=== PATIENT | female | born 1965 | race Caucasian/White ===

== ENCOUNTER 2018-08-20 20:44 | Emergency (ER) | payer OTHER ==
[~2018-08-20] VITALS: Ht 152.4 cm; Wt 81.6 kg
[~2018-08-20 20:44] MED LIST: ASPI81CT PO; FENO134C2 PO; FENO48TA3 PO; GLIP10TE PO; IBUP200C97 PO; METF1000 PO; PIOG15TA2 PO; RANI15SY PO; SIMV5TAB83 PO
[2018-08-20 20:54] VITALS: BP 178/88
--- NOTE | 2018-08-20 20:56 | NUR ---
PT TIRAGED AND SENT TO LOBBY
--- NOTE | 2018-08-20 22:16 | NUR ---
PT AMBULATED TO BED 3
--- NOTE | 2018-08-20 22:25 | NUR ---
PATIENT IS A 53 Y/O FEMALE WHO PRESENTS TO THE ED C/O WRIST PAIN. PT DENIES TRAUMA INJURY. PT REPORTS 8/10 ACHING R WRIST PAIN THAT DOES NOT RADIATE. NOTED MILD SWELLING. CMS INTACT. PT DENIES CP, SOB, N/V/D. PT AWAKE AND ALERT, RR EVEN/UNLABORED. PT REPOSITIONED FOR COMFORT, BED IN LOWEST POSITION. ER MD DR. MENSAH NOTIFIED. WILL CONTINUE TO MONITOR.
[2018-08-20] MEDS ORDERED: HYDROcodone/APAP 10/325 MG 1 TAB TAB PO ONE (23:25)
--- NOTE | 2018-08-21 00:15 | NUR ---
WRIST AND FOREARM SPLINT APPLIED TO PT R WRIST. FITTED TO PT, +CSM
[2018-08-21 00:30] VITALS: BP 150/82
--- NOTE | 2018-08-21 00:30 | NUR ---
Patient discharged with v/s stable. Written and verbal after care instructions given and explained. Patient alert, oriented and verbalized understanding of instructions. Ambulatory with steady gait. All questions addressed prior to discharge. ID band removed. Patient advised to follow up with PMD. Rx of NORCO 5MG-325MG given. Patient educated on indication of medication including possible reaction and side effects. Opportunity to ask questions provided and answered.
== END 2018-08-21 00:30 | disposition home or self-care (01) ==
LOC: MED 20:44
DX: M79.641 Pain in right hand (principal); Z88.0 Allergy status to penicillin; E11.9 Type 2 diabetes mellitus without complications; I10 Essential (primary) hypertension; Z79.84 Long term (current) use of oral hypoglycemic drugs; Z79.82 Long term (current) use of aspirin; Z79.899 Other long term (current) drug therapy
CPT/HCPCS: 73110; 73130; 99284

== ENCOUNTER 2019-07-27 19:26 | Emergency (ER) | payer OTHER ==
[~2019-07-27] VITALS: Ht 152.4 cm; Wt 88.5 kg
[~2019-07-27 19:26] MED LIST changes: +SIMV5TAB55 PO; -SIMV5TAB83 PO
[2019-07-27 19:40] VITALS: BP 149/84
[2019-07-27] MEDS ORDERED: KETOROLAC 30 MG/ML VIAL IM ONE (20:30)
[2019-07-27 20:31] LABS: BASOPHILS # (AUTO) 0.1 K/uL (0.00-0.22); BASOPHILS % (AUTO) 0.8 % (0.0-2.0); EOSINOPHILS # (AUTO) 0.1 K/uL (0-0.4); EOSINOPHILS % (AUTO) 1.6 % (0.0-4.0); HEMATOCRIT 38.2 % (36-48); HEMOGLOBIN 12.6 g/dL (12.0-16.0); LYMPHOCYTES # (AUTO) 2.6 K/uL (2.5-16.5); LYMPHOCYTES % (AUTO) 39.8 % (20.5-51.1); MEAN CORPUSCULAR HEMOGLOBIN 27 pg (27-31); MEAN CORPUSCULAR HGB CONC 33 g/dL (33-37); MEAN CORPUSCULAR VOLUME 82.5 fL (80-94); MONOCYTES # (AUTO) 0.5 K/uL (0.8-1.0); MONOCYTES % (AUTO) 7.1 % (1.7-9.3); NEUTROPHILS # (AUTO) 3.3 K/uL (1.8-7.7); NEUTROPHILS % (AUTO) 50.7 % (42.2-75.2); PLATELET COUNT (AUTO) 259 K/uL (140-450); RED BLOOD CELL COUNT(AUTO) 4.63 MIL/uL (4.20-5.40); RED CELL DISTRIBUTION WIDTH 12.8 % (11.6-13.7); WHITE BLOOD COUNT (AUTO) 6.5 K/uL (4.8-10.8)
[2019-07-27 20:41] LABS: APPEARANCE,URINE CLEAR (CLEAR); BILIRUBIN,URINE NEGATIVE (NEGATIVE); BLOOD, URINE NEGATIVE (NEGATIVE); COLOR,URINE YELLOW (YELLOW); LEUKOCYTE ESTERASE ,URINE NEGATIVE (NEGATIVE); NITRITE, URINE NEGATIVE (NEGATIVE); PH,URINE 5.5 (5.0-9.0); UGLUCOSE NEGATIVE (NEGATIVE)
[2019-07-27 20:53] LABS: ANION GAP 10.5 (8-16); CARBON DIOXIDE 28.9 mmol/L (21-32); CREATININE 0.6 mg/dL (0.6-1.3); POTASSIUM 3.4 mmol/L (3.5-5.1)
[2019-07-27 20:58] LABS: ALBUMIN 3.8 g/dL (3.4-5.0); TOTAL BILIRUBIN 0.3 mg/dL (0.0-1.0)
[2019-07-27 23:37] VITALS: BP 149/84
== END 2019-07-27 23:36 | disposition home or self-care (01) ==
LOC: MED 19:26
DX: R10.32 Left lower quadrant pain (principal); E11.9 Type 2 diabetes mellitus without complications; I10 Essential (primary) hypertension; Z98.890 Other specified postprocedural states; Z79.84 Long term (current) use of oral hypoglycemic drugs; Z79.899 Other long term (current) drug therapy; Z88.0 Allergy status to penicillin
CPT/HCPCS: 36415; 73502; 74176; 80053; 81003; 81025; 82948; 83690; 85025; 96372; 99284; J1885; Q0092

== ENCOUNTER 2019-10-11 16:12 | Emergency (ER) | payer OTHER ==
[~2019-10-11] VITALS: Ht 147.3 cm; Wt 96.6 kg
[~2019-10-11 16:12] MED LIST changes: +FENO48TA PO; -FENO48TA3 PO
[2019-10-11 16:19] VITALS: BP 164/83
--- NOTE | 2019-10-11 16:27 | NUR ---
PT AMBULATED TO ED BED 08
[2019-10-11] MEDS ORDERED: KETOROLAC 30 MG/ML VIAL IM ONE (16:40)
--- NOTE | 2019-10-11 16:45 | NUR ---
PATIENT ASSESSMENT COMPLETED AT THIS TIME. PATIENT SITTING UP IN BED, SIDE RAIL UP ON ONE SIDE. BED IN LOW LOCKED POSTION. NO NEEDS STATED AT THIS TIME.
--- NOTE | 2019-10-11 17:22 | NUR ---
applied justa tape to left 1st and 2nd teoe and ortho boot to left foot witout any issues
[2019-10-11 17:26] VITALS: BP 158/78
--- NOTE | 2019-10-11 17:26 | NUR ---
Patient discharged with v/s stable. Written and verbal after care instructions given and explained. Patient alert, oriented and verbalized understanding of instructions. Ambulatory with steady gait. All questions addressed prior to discharge. ID band removed. Patient advised to follow up with PMD. Rx of TYLENOL, ZOFRAN, PROMETHAZINE given. Patient educated on indication of medication including possible reaction and side effects. Opportunity to ask questions provided and answered.
== END 2019-10-11 17:26 | disposition home or self-care (01) ==
LOC: MED 16:12
DX: S90.122A Contusion of left lesser toe(s) without damage to nail, initial encounter (principal); E11.9 Type 2 diabetes mellitus without complications; I10 Essential (primary) hypertension; Z98.890 Other specified postprocedural states; Z79.899 Other long term (current) drug therapy; Z79.84 Long term (current) use of oral hypoglycemic drugs; Z88.0 Allergy status to penicillin; W06.XXXA Fall from bed, initial encounter; Y93.89 Activity, other specified; Y92.89 Other specified places as the place of occurrence of the external cause; Y99.8 Other external cause status
CPT/HCPCS: 73660; 82948; 96372; 99284; J1885; Q0092

== ENCOUNTER 2019-10-12 20:42 | Emergency (ER) | payer OTHER ==
[~2019-10-12] VITALS: Ht 152.4 cm; Wt 94.4 kg
[2019-10-12 21:00] VITALS: BP 150/86
--- NOTE | 2019-10-12 21:00 | NUR ---
TO BED # 07 AMBULATORY
--- NOTE | 2019-10-12 21:15 | NUR ---
54 Y/O FEMALE C/O COUGH, FEVER, GRIFFITH, BODY ACHES, COLD SX X 2 DAYS. RATES PAIN 10/10 AND DESCRIBES IT ACHING. PT TEMP AT TRIAGE IS 100.7 ORAL. LUNG SOUNDS ARE RONCHI BILAT UPPER LOBE. NO RESP DISTRESS NOTED. NO SOB. NO USE OF ACCESSORY MUSCLE. SPO2 99% RA. PT TOOK MOTRIN IN THE AM. EAR PAIN BILAT. BILAT EAR SHOWS REDNESS. PT STATES SHE HAS CHEST PAIN WHEN SHE COUGHS. NO V,D. PRODUCTIVE COUGH PRESENT. VSS. ALLERGIES: PENCILLIN PMH: DM.
--- NOTE | 2019-10-12 21:36 | NUR ---
GENARO CARLOS AT BEDSIDE TO EVAL PT.
[2019-10-12] MEDS ORDERED: ACETAMINOPHEN EXTRA STRENGTH 500 MG TAB PO ONE (21:40)
[2019-10-12] MEDS ORDERED: KETOROLAC 60 MG/2 ML VIAL IM ONE (21:40)
[2019-10-12] MEDS ORDERED: ONDANSETRON 4 MG ODT PO ONE (21:40)
[2019-10-12 22:29] VITALS: BP 150/86
--- NOTE | 2019-10-12 22:29 | NUR ---
Patient discharged with v/s stable. Written and verbal after care instructions given and explained. Patient alert, oriented and verbalized understanding of instructions. Ambulatory with steady gait. All questions addressed prior to discharge. ID band removed. Patient advised to follow up with PMD. Rx of TAMIFLU,IBUPROFEN, ZOFRAN, TESSLEN PERLES given. Patient educated on indication of medication including possible reaction and side effects. Opportunity to ask questions provided and answered.
== END 2019-10-12 22:29 | disposition home or self-care (01) ==
LOC: MED 20:42
DX: B34.9 Viral infection, unspecified (principal); J02.9 Acute pharyngitis, unspecified; E11.9 Type 2 diabetes mellitus without complications; I10 Essential (primary) hypertension; Z79.899 Other long term (current) drug therapy; Z88.0 Allergy status to penicillin
CPT/HCPCS: 96372; 99283; J1885; Q0162

== ENCOUNTER 2020-01-08 19:44 | Emergency (ER) | payer MEDICAID, OTHER ==
[~2020-01-08] VITALS: Ht 170.2 cm; Wt 81.6 kg
[~2020-01-08 19:44] MED LIST changes: -FENO48TA PO; +FENO48TA10 PO; -PIOG15TA2 PO; +PIOG15TA48 PO
[2020-01-08 19:56] VITALS: BP 154/78
--- NOTE | 2020-01-08 20:01 | NUR ---
PT TAKEN TO BED 3
--- NOTE | 2020-01-08 20:16 | NUR ---
54 Y/O FEMALE C/O COUGH WITH YELLOW SPUTUM X 2 DAYS. RR EVEN AND UNLABORED, NO ACCESSORY MUSCLE USE. STATES 5/10 HEADACHE. DENIES FEVER/CHILLS. DENIES N/V/D. SITTING UPRIGHT AWAKE AND ALERT. VSS MEDHX: DM ALLERGIES: PCN
[2020-01-08] MEDS ORDERED: IBUPROFEN 600 MG TAB PO ONE (20:25)
--- NOTE | 2020-01-08 20:28 | NUR ---
FLU SWAB COLLECTED.
--- NOTE | 2020-01-08 20:39 | NUR ---
PT MOVED TO LOBBY
[2020-01-08 21:25] VITALS: BP 154/78
--- NOTE | 2020-01-08 21:25 | NUR ---
Patient discharged with v/s stable. Written and verbal after care instructions given and explained. Patient alert, oriented and verbalized understanding of instructions. Ambulatory with steady gait. All questions addressed prior to discharge. ID band removed. Patient advised to follow up with PMD. Rx of PROMETHAZINE, IBUPROFEN WAS given. Patient educated on indication of medication including possible reaction and side effects. Opportunity to ask questions provided and answered.
== END 2020-01-08 21:25 | disposition home or self-care (01) ==
LOC: MED 19:44
DX: J06.9 Acute upper respiratory infection, unspecified (principal); E11.9 Type 2 diabetes mellitus without complications; I10 Essential (primary) hypertension; Z88.0 Allergy status to penicillin; Z79.899 Other long term (current) drug therapy
CPT/HCPCS: 87804; 99283

== ENCOUNTER 2021-11-02 18:54 | Emergency (ER) | payer MEDICAID ==
[~2021-11-02] VITALS: Ht 157.5 cm; Wt 81.6 kg
[~2021-11-02 18:54] MED LIST changes: -FENO48TA10 PO; +FENO48TA11 PO
[2021-11-02 19:35] VITALS: BP 170/90
--- NOTE | 2021-11-02 19:35 | NUR ---
TO TENT AMBULATORY
--- NOTE | 2021-11-02 19:40 | NUR ---
SWABS FOR INFLUENZA, NOVEL SENT TO LAB
--- NOTE | 2021-11-02 22:00 | NUR ---
BACK AND NOTED BY ERMD AND FOR D/C
[2021-11-02] MEDS ORDERED: PSEU120T22 PO (22:06)
[2021-11-02] MEDS ORDERED: ACET-10509 PO (22:06)
[2021-11-02] MEDS ORDERED: GUAI237L61 PO (22:08)
[2021-11-02 22:30] VITALS: BP 143/76
--- NOTE | 2021-11-02 22:30 | NUR ---
Patient discharged with v/s stable. Written and verbal after care instructions given and explained. Patient alert, oriented and verbalized understanding of instructions. Ambulatory with steady gait. All questions addressed prior to discharge. ID band removed. Patient advised to follow up with PMD. Rx of SUDAFED, TYLENOL, ROBITUSSIN given. Patient educated on indication of medication including possible reaction and side effects. Opportunity to ask questions provided and answered.
== END 2021-11-02 22:30 | disposition home or self-care (01) ==
LOC: MED 18:54
DX: J06.9 Acute upper respiratory infection, unspecified (principal); Z20.822 Contact with and (suspected) exposure to COVID-19; E11.9 Type 2 diabetes mellitus without complications; I10 Essential (primary) hypertension; Z88.0 Allergy status to penicillin; Z79.899 Other long term (current) drug therapy; Z79.84 Long term (current) use of oral hypoglycemic drugs; Z98.890 Other specified postprocedural states
CPT/HCPCS: 71046; 87804; 99284; U0003